=== PATIENT | male | born 1950 | race Two or more races ===

== ENCOUNTER 2025-03-19 22:28 | Emergency (ER) | payer MEDICARE, OTHER ==
[~2025-03-19] VITALS: Ht 172.7 cm; Wt 81.8 kg
--- NOTE | 2025-03-19 23:40 | ED.PDOC ---
General HPI Comments 74-year-old male who came to ER for urinary issues. Patient has a history of prostate enlargement, states he has Stanton catheter that has been unchanged for over a month. Patient has been unable to pass any urine since yesterday. Patient currently complaining of suprapubic abdominal pain. Denies any fever or lower back pains. REVIEW OF SYSTEMS: No fever, no chills, or fatigue HEENT: No sore throat, no earache, no congestion, no neck pain. Cardiac: No chest pain. No palpitations. Lungs: No shortness of breath, no cough. GI: No nausea, no vomiting, no diarrhea, no constipation, (+) abdominal pain : No dysuria, frequency, or urgency. No hematuria. (+) urinary retention Musculoskeletal: No joint pain , no joint swelling, no extremity edema. Skin: No rash, no itching. Neuro: No headache, no dizziness, no weakness PHYSICAL EXAM: General: Awake, alert and oriented. No acute distress. Skin: Skin in warm, dry and intact without rashes or lesions. HEENT: The head is normocephalic and atraumatic. Conjunctivae are clear without exudates or hemorrhage. Sclera is non-icteric. Neck: Normal range of motion. No JVD. Cardiac: Regular rate Respiratory: No signs of respiratory distress. No Stridor. : Stanton in place with empty Stanton bag Extremities: Upper and lower extremities are atraumatic in appearance without deformity. Neurological: The patient is awake, alert and oriented to person, place, and time with normal speech. Speech is clear. There is no facial asymmetry. Psychiatric: Appropriate mood and affect. Good judgement and insight. Chief Complaint: Urinary Time Seen by MD: 23:39 Primary Care Provider: None Reviewed notes: Nurses Notes Allergies: Coded Allergies: Aspirin (Verified Allergy, Unknown, 03/19/25) Information Source: Patient Mode of Arrival: Ambulatory Severity: Moderate Inability to void: Complete Timing: Hours Duration: Since onset Has not urinated for: Hours Onset: Spontaneous Symptoms: Inability to void History of: BPH Past Medical History PAST MEDICAL HISTORY: DM, High Lipids, HTN Past Medical History (Other): Prostate enlargement Surgical History: Appendectomy Family History Family History: Reviewed,noncontributory to illness, Unknown Social History Smoker: Non-Smoker Alcohol: Denies ETOH Use Drugs: Denies Drug Use Lives In: Home Was a procedure done? Was a procedure done?: No Differential Diagnosis Kidney stone (Female): N/A Urinary Problem (Male): Bladder Obstruction, Prostatitis, Plelonephritis, Renal Failure, Urethritis, Urinary Retention, Urolithiasis, UTI X-Ray, Labs, Meds, VS Vital Signs Date Time Temp Pulse Resp B/P (MAP) Pulse Ox O2 Delivery O2 Flow Rate FiO2 03/19/25 23:43 88 20 95 Room Air* 0 21 03/19/25 23:43 98.1 88 20 157/87 (110) 95 98.1 03/19/25 22:30 98.1 88 20 157/87 95 98.1 Time of 1ST Reevaluation: 23:37 Reevaluation 1ST: Unchanged Patient Education/Counseling: Need For Follow Up Family Education/Counseling: No Family Present SEPSIS Sepsis Screen Date sepsis recognized/suspect: Mar 19, 2025 Time Sepsis recognized/suspect: 2234 Recent Procedure: No On Antibiotic Therapy: No Respiratory Rate >20: No Heart Rate >90: No Temp<36 C (96.8 F) or >38.3 C: No SBP <90 or MAP <65 mmHG: No New Acute Mental Status Change: No Is the patient on CPAP, BIPAP,: No Vital Signs Date Time Temp Pulse Resp B/P (MAP) Pulse Ox O2 Delivery O2 Flow Rate FiO2 03/19/25 23:43 88 20 95 Room Air* 0 21 03/19/25 23:43 98.1 88 20 157/87 (110) 95 98.1 03/19/25 22:30 98.1 88 20 157/87 95 98.1 Departure 1 Departure Time of Disposition: 00:50 Impression: Primary Impression: Stanton catheter problem Disposition: HOME / SELF CARE / HOMELESS Condition: Stable Additional Instructions: ED DISCHARGE INSTRUCTIONS Instructions: Please read all instructions provided in this packet carefully. Although you have been discharged from the Emergency Department, this does not mean that you have a "clean bill of health". No definitive diagnosis for your symptoms has been made today. It is possible that you are in the process of developing a serious illness. This is why you must return to the ED without fail if any new or worsening symptoms (especially if your symptoms include chest pain, trouble breathing, abdominal pain, fever, headache, confusion, trouble s eeing, or trouble walking) It is also very important that you see a primary care provider (PCP) within the next 3-5 days to follow up. If you are unable to get an appointment, return to the ED for re-evaluation. Comments Stanton catheter changed in the ED Patient well-appearing, nontoxic. Advised prompt follow-up with PCP, return to the ED with any new, worsening or concerning symptoms. Critical Care Note Critical Care Time?: No Stability Stability form required: No Heart Score Heart Score: Heart Score Response (Comments) Value History N/A 0 EKG N/A 0 Age N/A 0 Risk Factors N/A 0 Troponin N/A 0 Total 0 I personally scribed for GILBERT GARCIA MD ([email or web address]) on 03/19/25 at 23:40. Electronically submitted by Olu Adair ([email or web address]). GILBERT GARCIA MD Mar 19, 2025 23:40
[2025-03-19 23:43] VITALS: BP 157/87; PULSE 88; RESP 20; TEMP 98.1; O2SAT 95
== END 2025-03-20 01:50 | disposition home or self-care (01) ==
LOC: ER 22:28
DX: T83.9XXA Unspecified complication of genitourinary prosthetic device, implant and graft, initial encounter (principal); R39.198 Other difficulties with micturition; E11.9 Type 2 diabetes mellitus without complications; I10 Essential (primary) hypertension; E78.5 Hyperlipidemia, unspecified; Z90.49 Acquired absence of other specified parts of digestive tract; Z88.6 Allergy status to analgesic agent; Y92.89 Other specified places as the place of occurrence of the external cause
CPT/HCPCS: 51702